=== PATIENT | male | born 2000 | race Caucasian/White ===

== ENCOUNTER → 2022-02-14 08:01 | Outpatient (CLI) | payer BC, SELFPAY ==
--- NOTE | 2022-02-14 08:14 | US_ITS ---
FINAL REPORT CLINICAL HISTORY: PERIUMBILICAL ABD PAIN FINDINGS: ABDOMINAL ULTRASOUND COMPLETE: TECHNIQUE: Ultrasound images of the abdomen were obtained. FINDINGS: The liver is unremarkable. There is a trace amount of sludge in the gallbladder. The common duct is normal. The pancreas is partially obscured. The right kidney measures 9.7 cm cm in length and is normal in echogenicity without hydronephrosis. The left kidney measures 9.8 cm cm in length and is normal in echogenicity without hydronephrosis. The spleen is unremarkable. The aorta is normal in caliber. The vena cava is unremarkable. IMPRESSION: Trace sludge in the gallbladder. Reviewed, Interpreted and Dictated by Juan Oconnor MD Transcribed by Jaret Jansen Authenticated and [facility]
== END ==
PROVIDERS: PCP Family Medicine; Visit Provider Family Medicine
DX: R10.33 Periumbilical pain (principal)
CPT/HCPCS: 76700

== ENCOUNTER 2022-06-13 15:56 | Emergency (ER) | payer BC, SELFPAY ==
[2022-06-13 16:05] VITALS: BP 184/92; PULSE 93; RESP 21; TEMP 36.8; O2SAT 98; BMI 24.3
--- NOTE | 2022-06-13 16:20 | EXP.UTC ---
Discharge Plan Disposition Patient Disposition: Home, Self-Care Condition: Good Referrals Follow up/Referrals: Alida Sparrow MD [Primary Care Provider] - See instructions Activity Restrictions/Add. Instructions Additional Instructions/Restrictions: Make sure to drink plenty of water Follow up with your Family Doctor in the next 24-48 hours if you are still having burning with urination Return if needed Straight to ER if any life threatening symptoms Clinical Impressions Clinical Impression: Burning with urination Stand Alone Forms Stand Alone Forms: Work/School Release Discharge ED Provider: Celina Mcgowan [facility] [place] HPI General Stated complaint: Poss UTI Mode of Arrival: Ambulatory Source of Information: Patient Limitations: No Limitations Time Seen by Provider: 06/13/22 16:20 Description of Symptoms (Recalled from Triage Doc. by RN): PATIENT C/O BURNING WITH URINATION X 2 DAYS HEENT Symptoms (Recalled from RN notes): No Resp Symptoms (Recalled from RN notes): No Skin Symptoms (Recalled from RN notes): No MS Symptoms (Recalled from RN notes): No Functional Status (Recalled from RN notes): WNL History of Present Illness Provider Complaint: Patient states that he wanted to get his urine checked for UTI States that on and off for the last couple of days he has been having burning with urination States that it is not everytime and at times he has had a burning feeling even when he didnt urinate States that he did this about a year ago and they checked his urine and said it was clear and it went away so today when he felt the burning he came in to get his urine checked Related Data Allergies Allergy/AdvReac Type Severity Reaction Status Date / Time No Known Allergies Allergy Verified 11/30/18 17:26 Worker's Comp Is this a Worker's Comp case?: No [facility] Disclaimer: The information contained in this section may have been updated after the patient was seen, as this information can be updated by other users. Social History Smoking Status: Never smoker alcohol intake: never substance use type: denies use current occupational status: employed and student Travel in the last 8 weeks: None household members: family housing: house ROS Obtained: Yes All systems reviewed & no additional complaints except as documented and Yes Systems reviewed as appropriate & no additional complaints except as documented Constitutional Constitutional: Reports system reviewed and no additional complaints, except as documented, Reports as per HPI, Denies body ache, Denies fever(s) and Denies headache(s) ENT Ears, Nose, Mouth, and Throat: Reports system reviewed and no additional complaints, except as documented, Reports as per HPI and Denies headache(s) Cardiovascular Cardiovascular: Reports system reviewed and no additional complaints, except as documented and Reports as per HPI Respiratory Respiratory: Reports system reviewed and no additional complaints, except as documented and Reports as per HPI Gastrointestinal Gastrointestingal: Reports system reviewed and no additional complaints, except as documented and as per HPI; Denies abdominal pain, nausea or vomiting Genitourinary Male Genitourinary: Reports system reviewed and no additional complaints, except as documented, Reports as per HPI, Denies difficulty urinating, Denies hematuria, Denies penile discharge, Denies scrotal swelling, Denies testicular pain, Denies urinary frequency, Denies urinary hesitancy, Denies urinary incontinence, Denies urinary urgency and Reports other (burning on and off with urination x 2 days) Neurologic Neurologic: Denies headache(s) Physical Exam General General appearance: alert and in no apparent distress ENT ENT exam: Present mucous membranes moist Chest Chest inspection: Present normal inspection and symmetric chest wall rise Respiratory Respiratory exam: Present normal lung sounds bilaterally; Absent respiratory distress or wheezes [facility]
[2022-06-13 16:24] LABS: Apearance,Urine Clear (Clear); Color,Urine Yellow (Yellow)
[2022-06-13 16:25] LABS: Bilirubin,Urine Negative (Negative); Blood, Urine Negative (Negative); Glucose,Urine (UA) Negative (Negative); Ketones,Urine TRACE (Negative); Protein,Urine Negative (Negative); UTC Leukocyte Esterase,Urine Negative (Negative); UTC Nitrate,Urine Negative (Negative); Urobilinogen,Urine 1 EU/dl (0.2)
[2022-06-13 16:38] VITALS: BP 138/81; PULSE 93; RESP 21; TEMP 36.8; O2SAT 98
== END 2022-06-13 16:40 | disposition home or self-care (01) ==
PROVIDERS: Emergency Provider Nurse Practitioner; PCP Family Medicine
DX: R30.0 Dysuria (principal)
CPT/HCPCS: 81003; 87086; 99212; 99213; G0463

== ENCOUNTER → 2022-07-30 07:38 | Outpatient (CLI) | payer BC, SELFPAY ==
--- NOTE | 2022-07-30 | CA_ITS ---
FINAL REPORT CLINICAL HISTORY: HTN systolic high's in 140's, Family hx-HTN FINDINGS: Aorta velocity: 89 cm/sec Right kidney: 10.1 cm. No evidence of hydronephrosis or mass. Right intrarenal RI: .61 Right renal artery velocity: 147 cm/sec. Right RAR (Renal artery-Aortic Ratio): 1.7 Left Kidney: 10.2 cm. No evidence of hydronephrosis or mass. Left intrarenal RI: .62 Left renal artery velocity: 215 cm/sec. Left RAR (Renal Artery-Aortic Ratio): 2.4 IMPRESSION: Less than 60% renal artery stenosis bilaterally. CT angiogram or postcontrast MR angiogram would be more sensitive for evaluation of possible renal artery stenosis. Reviewed, Interpreted and Dictated by Juan Oconnor MD Transcribed by Aleyda Beckham Authenticated and [facility]
== END ==
PROVIDERS: PCP Family Medicine; Visit Provider Family Medicine
DX: I10 Essential (primary) hypertension (principal)
CPT/HCPCS: 93976

== ENCOUNTER → 2022-09-29 16:38 | Outpatient (CLI) | payer BC, SELFPAY | PROVIDERS: PCP Family Medicine; Visit Provider Family Medicine | DX: R30.9 Painful micturition, unspecified (principal) | CPT/HCPCS: 87491; 87591 ==

== ENCOUNTER → 2022-10-03 16:35 | Outpatient (CLI) | payer BC, SELFPAY ==
[2022-10-06 22:35] LABS: Neisseria gonorrhoeae, NAA Negative (Negative)
== END ==
PROVIDERS: PCP Family Medicine; Visit Provider Family Medicine
DX: R30.9 Painful micturition, unspecified (principal)
CPT/HCPCS: 87491; 87591

== ENCOUNTER 2024-01-03 17:20 | Emergency (ER) | payer OTHER, SELFPAY ==
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
[2024-01-03 17:53] VITALS: BP 133/78; PULSE 84; RESP 20; TEMP 36.6; O2SAT 97; BMI 25.6
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
[2024-01-03] MEDS: cefTRIAXone 1GM VIAL 1 GM IM (18:25)
[2024-01-03] MEDS: LIDOCAINE 1% 5ML PF VIAL IM (18:25)
[2024-01-03 18:43] VITALS: BP 133/78; PULSE 84; RESP 20; TEMP 36.6
== END 2024-01-03 18:48 | disposition home or self-care (01) ==
PROVIDERS: Emergency Provider Nurse Practitioner Family; PCP Family Medicine
DX: L03.113 Cellulitis of right upper limb (principal)
CPT/HCPCS: 73110; 73130; 87070; 87077; 87186; 87205; 99213; G0381; J0696